=== PATIENT | male | born 1995 | race Hispanic/Latino ===

== ENCOUNTER 2021-12-14 01:11 | Day surgery (SDC) | payer MEDICAID, SELFPAY ==
[2021-12-14] VITALS (12 sets, daily range): BP systolic 120–136; BP diastolic 51–76; PULSE 59–94; RESP 12–18; TEMP 36.3–36.8; O2SAT 97–100
--- NOTE | ~2021-12-14 | US_ITS ---
US scrotum doppler DATE: 12/14/2021 03:00 INDICATION: Left testicular pain, tenderness TECHNIQUE: Real-time imaging, color flow imaging and Doppler analysis COMPARISON: None FINDINGS: Right testicle measures 4.5 x 2 x 2.7 cm. There is vascular flow. No right testicular mass lesion or torsion is evident. Left testicle measures 4.1 x 2.9 x 3.8 cm. There is asymmetric diminished vascular flow. No left test icular mass lesion is noted. Diminished amplitude of the left testicular arterial wave form. Findings suggest left testicular torsion. Small left hydrocele. No varicoceles are noted. IMPRESSION: Left testicular torsion is suggested Reviewed, dictated and finalized at [facility] Reviewed, dictated and finalized at [facility]. [facility]
[2021-12-14 01:36] LABS: Basophils Percent Auto 0.3 % (0.2-1.2); Hematocrit 45.8 % (42.0-52.0); Hemoglobin 15.2 g/dL (14.0-18.0); Immature Granulocyte Absolute 0.03 K/mm3 (0.00-0.031); Immature Granulocyte Percent A 0.4 % (0-0.5); Lymphocytes Absolute Auto 0.59 K/mm3 (0.9-3.2); Lymphocytes Percent Auto 7.5 % (18.3-44.2); Mean Corpuscular HGB Conc 33.2 g/dl (32-36); Mean Corpuscular Volume 84.3 fl (80-100); Mean Platelet Volume 10.1 fl (7.4-10.4); Monocytes Absolute Auto 0.2 K/mm3 (0.1-0.6); Monocytes Percent Auto 1.9 % (2.6-8.5); Neutrophils Percent Auto 89.9 % (45.5-73.1); Platelet Count Result 152 k/mm3 (150-375); Red Blood Count 5.43 M/mm3 (4.6-6.20); Red Cell Distribution Width 12.9 % (11.5-14.5); White Blood Count 7.8 K/mm3 (4.5-10.0)
[2021-12-14] MEDS: MORPHINE SULFATE (*CRX) 4 MG/ML INJ IV PUSH ×2 (01:43→03:13)
[2021-12-14 01:45] LABS: Anion Gap 10 mmol/L (8-16); Blood Urea Nitrogen 15 mg/dL (9-20); Calcium 8.9 mg/dL (8.4-10.2); Carbon Dioxide 27 mmol/L (22-30); Chloride 97 mmol/L (98-107); Estimated CRCL calculation 119 ml/min; Estimated Glomerular Filt Rate > 60; Glucose 115 mg/dL (65-110); Potassium 4.1 mmol/L (3.4-5.0); Sodium 134 mmol/L (137-145)
[2021-12-14 02:10] LABS: Add Urine Microscopic? YES; Amorphous Sediment Urine Few; Appearance Urine Turbid (Clear); Bilirubin Urine Negative (Negative); Color Urine Amber (Yellow); Glucose Urine UA Negative (Negative); Ketones Urine 2+ mg/dL (Negative); Leukocyte Esterase Ur Negative LEU/UL (Negative); Mucus Urine Heavy /lpf; Nitrate Urine Negative (Negative); Protein Urine Negative (Negative); Specific Grav Ur 1.027 (1.001-1.035); Urobilinogen Urine Negative mg/dL (<2.0)
[2021-12-14 02:13] LABS: Blood Urine Negative (Negative)
--- NOTE | 2021-12-14 02:22 | PC.NURSE ---
Patient to US at this time. Stable
--- NOTE | 2021-12-14 02:45 | ED.MALEGU ---
HPI - Male Genitourinary General Chief complaint: Urogenital-Male Stated complaint: abd pain Time Seen by Provider: 12/14/21 01:20 History of Present Illness HPI Narrative: Patient is a 26-year-old male who presents ER with left-sided testicular pain. Sudden onset around 11:30 PM. Pain is increased. No alleviating factors. Worse with movement. No urinary frequency urgency or dysuria. Patient reports pain radiates into his left lower quadrant. Denies swelling to the scrotum or testicle. No urethral discharge. No no concerns for STI. Related Data Home Medications Medication Instructions Recorded Confirmed No Home Medications 12/14/21 12/14/21 Allergies Allergy/AdvReac Type Severity Reaction Status Date / Time No Known Allergies Allergy Verified 12/14/21 01:30 Review of Systems Review of Systems: All systems reviewed & are unremarkable except as noted in HPI and below Constitutional: Constitutional: Denies chills and Denies fever(s) Gastrointestinal: Gastrointestinal: Reports abdominal pain, Denies diarrhea, Denies nausea and Denies vomiting Genitourinary: Genitourinary: Denies hematuria, Denies oliguria, Denies genital lesions, Denies dysuria, Denies penile discharge and Reports testicular pain Neurologic: Denies focal weakness and Denies numbness PMFSH Past Medical History Medical History (Updated 12/14/21 @ 03:30 by Raman Torre MD) Healthy adult male Surgical History Surgical History (Updated 12/14/21 @ 03:30 by Raman Torre MD) No history of previous surgery Social History Social History (Updated 12/14/21 @ 03:30 by Raman Torre MD) Smoking status: Never smoker Exam Narrative: GENERAL: Well-appearing, well-nourished, and in no acute distress. HEAD: Normocephalic, atraumatic. EYES: PERRL, EOMI CHEST: Clear to auscultation. No respiratory distress. HEART: Regular rate and rhythm. Normal peripheral pulses. ABDOMEN: Soft, nontender, nondistended. : Normal-appearing uncircumcised penis without lesions. Left testicle tender and high riding. And not is felt over the spermatic cord with tenderness. No hernia palpated bilaterally. Right testicle normal nontender. EXTREMITIES: Normal range of motion. No edema. SKIN: Warm, dry, no rash. NEURO: Alert and oriented x3. PSYCH: Normal mood and affect. Course Course Emergency Course: Urology consulted and will take patient in the OR. Patient aware of diagnosis and treatment plan. Discussed risks and benefits of procedure including loss of testicle and salvage of testicle. Vital Signs Vital signs: Vital Signs Temperature 98.3 F 12/14/21 01:20 Pulse Rate 61 12/14/21 01:20 Respiratory Rate 16 12/14/21 01:20 Blood Pressure 136/74 12/14/21 01:20 Pulse Oximetry 99 12/14/21 01:20 Temperature 98.3 F 12/14/21 01:20 Pulse Rate 60 12/14/21 03:22 Respiratory Rate 16 12/14/21 03:22 Blood Pressure 126/70 12/14/21 03:22 Pulse Oximetry 99 12/14/21 03:22 MDM - Male Genitourinary Lab Data Result diagrams: 12/14/21 01:30 12/14/21 01:30 Labs: Lab Results 12/14/21 12/14/21 12/14/21 Range/Units 01:30 01:30 01:40 WBC 7.8 (4.5-10.0) K/mm3 RBC 5.43 (4.6-6.20) M/mm3 Hgb 15.2 (14.0-18.0) g/dL Hct 45.8 (42.0-52.0) % MCV 84.3 (80-100) fl MCH 28.0 (26-34) pg MCHC 33.2 (32-36) g/dl RDW 12.9 (11.5-14.5) % Plt Count 152 (150-375) k/mm3 MPV 10.1 (7.4-10.4) fl Immature Gran % (Auto) 0.4 (0-0.5) % Neut % (Auto) 89.9 H (45.5-73.1) % Lymph % (Auto) 7.5 L (18.3-44.2) % Burt % (Auto) 1.9 L (2.6-8.5) % Eos % (Auto) 0.0 (0-4.4) % Baso % (Auto) 0.3 (0.2-1.2) % Lymph # (Auto) 0.59 L (0.9-3.2) K/mm3 Burt # (Auto) 0.2 (0.1-0.6) K/mm3 Eos # (Auto) 0.0 (0-0.3) K/mm3 Baso # (Auto) 0.0 (0.0-0.1) K/mm3 Abs Immat Gran (auto) 0.03 (0.00-0.031) K/mm3 Absolute Neuts (auto) 7.0 H
--- NOTE | 2021-12-14 03:29 | PC.NURSE ---
Surgical procedure explained by Dr. Torre using translation device. Consent for treatment obtained and placed in patients chart.
--- NOTE | 2021-12-14 03:53 | WPDANESEPP ---
Anes - Eval Pre Procedure Procedure: Operation Date: 12/14/21 04:30 Proposed Procedures p Orchiopexy - Grace Espinoza MD Date/Time: 12/14/21 03:53 Pre Op Diagnosis: abd pain Patient Data Age: 26 Gender: M Height: 1.65 m Weight: 72 kg Last Vital Signs Temp 36.8 C 12/14/21 01:20 Pulse 60 12/14/21 03:22 Resp 16 12/14/21 03:22 BP 126/70 12/14/21 03:22 Pulse Ox 99 12/14/21 03:22 Allergies Allergy/AdvReac Type Severity Reaction Status Date / Time No Known Allergies Allergy Verified 12/14/21 01:30 Home Medications Medication Instructions Recorded Confirmed Type No Home Medications 12/14/21 12/14/21 History Laboratory Tests 12/14/21 12/14/21 12/14/21 01:30 01:30 01:40 WBC 7.8 K/mm3 K/mm3 (4.5-10.0) RBC 5.43 M/mm3 M/mm3 (4.6-6.20) Hgb 15.2 g/dL g/dL (14.0-18.0) Hct 45.8 % % (42.0-52.0) MCV 84.3 fl fl (80-100) MCH 28.0 pg pg (26-34) MCHC 33.2 g/dl g/dl (32-36) RDW 12.9 % % (11.5-14.5) Plt Count 152 k/mm3 k/mm3 (150-375) MPV 10.1 fl fl (7.4-10.4) Immature Gran % (Auto) 0.4 % % (0-0.5) Neut % (Auto) 89.9 % H % (45.5-73.1) Lymph % (Auto) 7.5 % L % (18.3-44.2) [place] % (Auto) 1.9 % L % (2.6-8.5) Eos % (Auto) 0.0 % % (0-4.4) Baso % (Auto) 0.3 % % (0.2-1.2) Lymph # (Auto) 0.59 K/mm3 L K/mm3 (0.9-3.2) [place] # (Auto) 0.2 K/mm3 K/mm3 (0.1-0.6) Eos # (Auto) 0.0 K/mm3 K/mm3 (0-0.3) Baso # (Auto) 0.0 K/mm3 K/mm3 (0.0-0.1) Abs Immat Gran (auto) 0.03 K/mm3 K/mm3 (0.00-0.031) Absolute Neuts (auto) 7.0 K/mm3 H K/mm3 (1.3-6.7) Absolute Nucleated RBC 0.0 K/mm3 K/mm3 (0.0-0.012) Nucleated RBC % 0.0 % % (0.0-0.2) Sodium 134 mmol/L L mmol/L (137-145) Potassium 4.1 mmol/L mmol/L (3.4-5.0) Chloride 97 mmol/L L mmol/L (98-107) Carbon Dioxide 27 mmol/L mmol/L (22-30) Anion Gap 10 mmol/L mmol/L (8-16) BUN 15 mg/dL mg/dL (9-20) Creatinine 0.70 mg/dL mg/dL (0.7-1.3) Estim Creat Clear Calc 119 ml/min ml/min Estimated GFR > 60 (59 - ) Glucose 115 mg/dL H mg/dL (65-110) Calcium 8.9 mg/dL mg/dL (8.4-10.2) Urine Color Agata (Yellow) Urine Appearance Turbid H (Clear) Urine pH 7.0 (5.0-9.0) Ur Specific [place] 1.027 (1.001-1.035) Urine Protein Negative mg/dL mg/dL (Negative) Urine Glucose (UA) Negative mg/dL mg/dL (Negative) Urine Ketones 2+ mg/dL H mg/dL (Negative) Ur Blood (Man) Negative (Negative) Urine Nitrate Negative (Negative) Urine Bilirubin Negative (Negative) Urine Urobilinogen Negative mg/dL mg/dL (<2.0) Leukocyte Esterase Rfl Negative FAMILIA/UL FAMILIA/UL (Negative) Urine RBC 3-5 /hpf H /hpf (0-2) Urine WBC 10-15 /hpf H /hpf Amorphous Sediment Few H (None) Urine Mucus Heavy /lpf H /lpf SARS-CoV-2 RNA (RT-PCR) 12/14/21 03:20 WBC RBC Hgb Hct MCV MCH MCHC RDW Plt Count MPV Immature Gran % (Auto) Neut % (Auto) Lymph % (Auto) [place] % (Auto) Eos % (Auto) Baso % (Auto) Lymph # (Auto) [place] # (Auto) Eos # (Auto) Baso # (Auto) Abs Immat Gran (auto) Absolute Neuts (auto) Absolute Nucleated RBC Nucleated RBC % Sodium Potassium Chloride Carbon Dioxide Anion Gap BUN Creatinine Estim Creat Clear Calc Estimated GFR Glucose Calcium Urine Color Urine Appearance Urine pH
--- NOTE | 2021-12-14 04:11 | PC.NURSE ---
Urology at bedside.
--- NOTE | 2021-12-14 04:22 | WPDURCON ---
Assessment and Plan Assessment and plan (1) Left testicular torsion: Code(s): N44.00 - Torsion of testis, unspecified Status: Acute Assessment and Plan: Left testicular torsion I discussed the risks benefits and alternatives with the patient and his friend the bedside via health and wellness coach services. The patient agrees to proceed with bilateral orchiopexy with possible left orchiectomy. He understands the risks of the procedure including but limited to infection, bleeding, pain, injury to surrounding structures, complication of anesthesia. He understands and agrees to proceed. Urology Consult Note HPI Date Seen: 12/14/21 Requesting Physician: Grace Espinoza MD Primary Care Provider: [facility]ICIAN Consult Narrative Narrative: Jorge L Norman is a 26 year old male who presents to the ER after acute onset of left-sided testicular pain at 11:30 a.m. at night. Denies previous pain. He denies trauma. History taken through call in video health and wellness coach services Review of Systems Review of Systems: All systems reviewed & are unremarkable except as noted in HPI and below PMFSH Past Medical History Medical History (Updated 12/14/21 @ 03:30 by Raman Torre MD) Healthy adult male Surgical History Surgical History (Updated 12/14/21 @ 03:30 by Raman Torre MD) No history of previous surgery Social History Social History (Updated 12/14/21 @ 03:30 by Raman Torre MD) Smoking status: Never smoker Meds Home Medications and Allergies Home Medications Medication Instructions Recorded Confirmed Type No Home Medications 12/14/21 12/14/21 History Allergies Allergy/AdvReac Type Severity Reaction Status Date / Time No Known Allergies Allergy Verified 12/14/21 01:30 Vital Signs Vital Signs - 24 hr 12/14/21 01:20 12/14/21 03:22 12/14/21 04:05 Temperature 36.8 C Pulse Rate 61 60 65 Respiratory Rate 16 16 14 Blood Pressure 136/74 126/70 120/70 Pulse Oximetry 99 99 99 Exam Narrative: The patient is awake and alert. He is no acute distress. His breathing is unlabored his abdomen is soft nontender nondistended. The patient's left testicle is high-riding and painful to palpation with and not present in the spermatic cord. The right testicle is normal to palpation, soft without masses Results Labs CBC & Chem 7: 12/14/21 01:30 12/14/21 01:30 Labs: Short CBC 12/14/21 Range/Units 01:30 WBC 7.8 (4.5-10.0) K/mm3 Hgb 15.2 (14.0-18.0) g/dL Hct 45.8 (42.0-52.0) % Plt Count 152 (150-375) k/mm3 BMP 12/14/21 01:30 Sodium 134 L Potassium 4.1 Chloride 97 L Carbon Dioxide 27 BUN 15 Creatinine 0.70 Glucose 115 H Calcium 8.9 Urine 12/14/21 Range/Units 01:40 Urine Color Agata (Yellow) Urine Appearance Turbid H (Clear) Urine pH 7.0 (5.0-9.0) Ur Specific [place] 1.027 (1.001-1.035) Urine Protein Negative (Negative) mg/dL Urine Glucose (UA) Negative (Negative) mg/dL scrotal ultrasound: I personally examined the images consistent with a left testicular torsion with poor Doppler flow. Right testicle appears normal.
--- NOTE | 2021-12-14 04:23 | WPDANESEFPP ---
Anes - Eval Final PreProcedure Day of Procedure 12/14/21 04:23 Patient weight: overweight Heart: regular rate and rhythm Lungs: clear to auscultation Airway: Mallampati scale class II Neurological: alert and oriented Last oral intake: >/= 8 hours ASA classification: II Emergent: yes Anesthetic plan: proceed Anesthesia type and monitoring: general LMA and standard monitoring Results Review: All pre-operative results and documents have been reviewed as part of the pre-operative evaluation. Informed Consent: The patient's anesthetic plan and its attendant risks and benefits were discussed with the patient/family/POA. Questions were solicited and answers provided to the satisfaction of the patient/family/POA.
[2021-12-14] MEDS: ceFAZolin SODIUM 1 GM VIAL 2 GM IV PUSH (04:43)
[2021-12-14] MEDS: BUPIVACAINE HCL 0.5% PF 30 ML VIAL INFILTRATE (04:57)
--- NOTE | 2021-12-14 05:34 | W.PM.PROC2 ---
Procedure Note - Detailed Date of Procedure 12/14/21 Pre-op Diagnosis Left testicular torsion Post-op Diagnosis Same Procedure Performed De torsion of the left testicle, Bilateral orchiopexy Surgeon Grace Espinoza MD Anesthesia General Description of Procedure Informed consent was obtained. Patient taken the operating. He was given preoperative IV antibiotics. Was induced anesthesia Marcaine was injected in the midline scrotal raphae. A 4cm incision was made we dissected down to left hemiscrotum. The tunica vaginalis was opened we identified a dark testicle, there was a petit clapper deformity with 360degree torsion. I then de torsed the left testicle and there was significant improvement in the color of the testicle. I placed a moist Ray-Mandeep over the testicle for 10minutes, at this point the inferior anterior port of the testicle did pink up significantly however the superior portion of the testicle still appeared dark -this was felt to be a enough improvement in testicular function to leave the testicle in place. We therefore performed an orchiopexy with a total 3-0 Ethibond suture through the dartos and through the tunica albuginea the testicle laterally, medially, and inferiorly. We then the right hemiscrotum, opened the tunica vaginalis. The right testicle was normal appearance with a less significant petit clapper deformity. We performed an orchiopexy in the same fashion as the other side with a total 3-0 Ethibond suture through the dartos and through the tunica albuginea the testicle laterally, medially, and inferiorly. We then irrigated copiously. We closed the dartos layer with 3-0 Vicryl suture. We closed the deep dermal layer with 3-0 Vicryl suture. We closed the skin with a 3-0 chromic horizontal mattress. Dressing and scrotal support placed taylor was awakened taken to PACU in stable condition Estimated Blood Loss 10 Drains No Packing No Pathology None sent Complications No immediate complications Condition Stable Disposition PACU
[2021-12-14] MEDS: LACTATED RINGERS 1,000 ML 30 ML IV CONT (05:36)
[2021-12-14] MEDS: fentaNYL CITRATE INJ (*CRX) 100 MCG/2 ML VIAL 25 MCG IV PUSH ×4 (05:51→06:37)
--- NOTE | 2021-12-14 05:56 | SUR.PHASEI ---
0550; PT RESTLESS, KEEPS PUTTING HANDS INSIDE SCROTAL SUPPORT, SAYS YES TO PAIN, FIELD CLERK MELISSA USED PRN.
--- NOTE | 2021-12-14 06:23 | SUR.PHASEI ---
0620; PT DROWSY, AWAKENS EASILY. RELAXED. NO LONGER RESTLESS. STATES PAIN 8/10. FENTANYL GIVEN PRN.
--- NOTE | 2021-12-14 06:46 | SUR.PHASEI ---
DR GOODEN IN PACU CHECKING ON PT
[2021-12-14] MEDS: oxyCODONE HCL (*CRX) 5 MG TAB IR PO (07:31)
[2021-12-14 08:11] LABS: SARS-CoV-2 RNA PCR Negative
== END 2021-12-14 08:27 | disposition home or self-care (01) ==
LOC: ANHED 01:39 → ANHSURGERY 03:13
PROVIDERS: Emergency Provider Emergency Medicine; Visit Provider Urology
PROC: (CPT 54600; principal; 2021-12-14 04:30)
DX: N44.00 Torsion of testis, unspecified (principal); R10.2 Pelvic and perineal pain; Z20.822 Contact with and (suspected) exposure to COVID-19
CPT/HCPCS: 54600; 54640; 36415; 76870; 80048; 81001; 85025; 87086; 87088; 93976; 96374; 96375; 96376; 99285; A9270; C9803; J0690; J2250; J2270; J2405; J2704; J3010; J7120; U0003; U0005